=== PATIENT | male | born 1970 | race Caucasian/White ===

== ENCOUNTER 2018-05-05 21:32 | Emergency (ER) | payer MEDICAID ==
--- NOTE | 2018-05-05 22:07 | ED Physician Chart ---
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 that they have terrible time with blood draws and IV Allergies:: Allergies Allergy/AdvReac Type Severity Reaction Status Date / Time No Known Allergies Allergy Verified 05/05/18 21:40 Vitals:: Vital Signs - 8 hr 05/05/18 21:35 Temp 98.3 F HR 69 RR 17 BP 153/87 O2 Sat % 98 ED Review of Systems - Review of Systems General/Constitutional: Chills Skin: Other (swelling rt hand blistering) Head: Headache Eyes: No loss of vision ENT: No earache Neck: No neck pain Cardio Vascular: No chest pain Pulmonary: No SOB GI: No vomiting Endocrine: No polyuria Psychiatric: No prior psych history Neurological: No syncope ED Past Medical History - Past Medical History Past Medical History: DM, Other (panreatic problem) Surgical History: other (whipple) Family Medical History - Family Member Mother History Unknown: Yes Ethnicity: Non- Hx Family Cancer: No Hx Family Coronary Artery Disease: No Hx Family Congestive Heart Failure: No Hx Family Hypertension: No Hx Family Stroke: No Hx Family Diabetes: Yes Hx Family Seizures: No Hx Family Dementia: No Hx Family AIDS: No Hx Family HIV: No Hx Family COPD: No Hx Family Hepatitis: No Hx Family Psychiatric Problems: Yes Hx Family Tuberculosis: No ED Physical Exam - Physical Examination General/Constitutional: Well-developed, well-nourished Head: Atraumatic Eyes: Lids, conjuctiva normal Skin: Nl inspection, No rash, No skin lesions, No ecchymosis, Well hydrated, No lymphadenopathy Other Skin comments:: swelling reddness blistering rt hand ENMT: External ears, nose nl Neck: Nontender Respiratory: Nl effort/Exclusion, Clear to Auscultation, No Wheeze/Rhonchi/Rales Cardio Vascular: RRR, No murmur, gallop, rubs, NL S1 S2 GI: No tenderness/rebounding/guarding, No organomegaly, No hernia, Normal BS's, Nondistended, No mass/bruits, No McBurney tenderness : No CVA tenderness Extremities: No tenderness or effusion, Full ROM, normal strength in all extremities, No edema, Normal digits & nails Neuro/Psych: Alert/oriented, DTR's symmetric, Normal sensory exam, Normal motor strength, Judgement/insight normal, Mood normal, Normal gait, No focal deficits Misc: Normal back, No paraspinal tenderness ED Assessment - Assessment General Assessment: tenosynovitis rt hand and infected thumb wound ED Septic Shock - . Is Septic Shock (SBP<90, OR Lactate>4 mmol\L) present?: No - <6hrs of presentation: Vital Signs: Vital Signs - 8 hr 05/05/18 21:35 Temp 98.3 F HR 69 RR 17 BP 153/87 O2 Sat % 98 ED Reassessment (Disposition) - Reassessment Reassessment:: tenosynovitis swollen rt hand and infected thumb wound - Diagnosis Diagnosis:: tenosynovitis rt hand and infected rt thumb laceration - Aftercare/Follow up Instructions Aftercare/Follow-Up Instructions:: Counseled pt regarding lab results/diagnosis & need follow up, Refer to Discharge Instructions Notes:: pt refused admission because of poor vein access etc but understoof if it did not get better to come back in Medication Prescribed:: bactrim amox - Patient Disposition Discharge/Transfer:: Home Condition at Disposition:: Critical
== END 2018-05-05 22:15 | disposition home or self-care (01) ==
LOC: ER 21:32
DX: S61.011A Laceration without foreign body of right thumb without damage to nail, initial encounter (principal); M65.141 Other infective (teno)synovitis, right hand; E11.9 Type 2 diabetes mellitus without complications; W26.0XXA Contact with knife, initial encounter; Y93.89 Activity, other specified; Y92.89 Other specified places as the place of occurrence of the external cause; Y99.8 Other external cause status
CPT/HCPCS: J0696; Z7502